=== PATIENT | female | born 1950 | race Caucasian/White ===

== ENCOUNTER 2019-03-12 05:27 | Day surgery (SDC) | payer OTHER, BC ==
[~2019-03-12] VITALS: Ht 167.6 cm; Wt 69.4 kg
--- NOTE | ~2019-03-12 | O ---
[facility] [place] [address] OPERATIVE REPORT Name: DOTTIE BINGHAM Room #: 150-4 [facility] M.R.#: [id number] Admission: 03/12/19 ������������������ Attend Phys: Renaldo Arguello Discharge: ������������������ Date of : 54 Report #: [id number] THIS REPORT FOR: //name// CC: Renaldo Fernandez DATE OF SERVICE: 03/12/2019 PREOPERATIVE DIAGNOSIS: Left humeral shaft fracture, nonunion. POSTOPERATIVE DIAGNOSIS: Left humeral shaft fracture, nonunion. PROCEDURE PERFORMED: Open reduction and internal fixation of left humeral shaft fracture with locking plate and bone grafting. SURGEON: Renaldo Desai M.D. SODA FLAKER: Raven Ridley PA-C. ANESTHESIA: General. FLUIDS: Approximately 1500 mL crystalloid. ESTIMATED BLOOD LOSS: Approximately 50 mL. IMPLANTS UTILIZED: Synthes proximal humeral locking plate. DESCRIPTION OF PROCEDURE: After proper identification of the patient and the operative site in preoperative holding area, the operative site was signed by myself. Risks, benefits, alternatives and potential complications of her injury and proposed treatment were discussed. The patient and her wished to proceed with the above. Anesthesia discussed the risks, benefits, alternatives and potential complications of a block and under ultrasound guidance, performed an interscalene block to help with postoperative pain management. After satisfactory block, she was brought back to the operative suite. After induction of satisfactory general anesthesia, she was carefully positioned in the beach chair with head of bed elevated approximately 40 degrees. Left arm was sterilely prepped and draped in the usual manner and placed within a apta.me limb positioning system. Final skin draping was with Ioban. Anterior deltopectoral approach extending into the anterior Demarco approach of the arm was planned. Gross fracture site mobility was noted consistent with her preoperative imaging studies and diagnosis of a nonunion. Fracture site was identified using C-arm. Incision was centered from this area. Full thickness skin flaps were developed. Deltopectoral interval was found opened. Brown deltoid retractor was used to carefully retract these tissues and then, the approach was extended distally and more classic anterior exposure with splitting [facility] [address] [place] [address] OPERATIVE REPORT Name: DOTTIE BINGHAM Room #: 150-4 [facility] M.R.#: [id number] Admission: 03/12/19 ������������������ Attend Phys: Renaldo Arguello Discharge: ������������������ Date of : 54 Report #: [id number] of the brachialis. Subperiosteal dissection was used to gain access to the shaft and the fracture site. Fracture site fibrous tissue was noted with no significant bony union from the butterfly fragment to the proximal or distal fragments. After this had been very meticulously cleared out and punctate type bone bleeding noted from the fracture surfaces, the fracture was able to be aligned near anatomically. Cancellous chips bone graft was carefully impacted into the fracture site and then bluntly, the periosteum was elevated in three separate areas around the butterfly fragments to compress the bone graft and the Arthrex Cerclage FiberTape system was placed. Great care was taken to ensure that this was placed directly around the bone with no interposed soft tissue. Proximally and distally, these two were tensioned and tied appropriately and then, the Synthes plate was provisioned and secured initially with two cortical screws. Its overall position was deemed to be in satisfactory position. Total of three additional locking screws were placed proximally and six cortices of fixation were achieved distally and then at the apex of the butterfly fragment, the third FiberTape Cerclage was passed adding additional fixation and stabilization in the mid aspect of the plate where the orientation of the plate did not really accommodate screw fixation in this region. Again, great care was taken with the FiberTape passage to not incorporate any soft tissue and protect the surrounding neurovascular structures. Implant images in the AP and lateral planes were obtained and revealed satisfactory alignment of the fracture as well as the hardware placement. There was good compression at the fracture sites with the cerclage with respect to the bone grafting. Wound was thoroughly irrigated multiple times throughout the procedure with antibiotic irrigant. One gram of vancomycin powder was utilized during closure in the deep and superficial tissues. Fascial layer was closed with 0 Vicryl, 2-0 Vicryl for the subcutaneous tissues, final skin closure with a running Monocryl stitch. The incision was sealed with Dermabond. Aquacel dressing was applied as well as a sling and abduction pillow. At time of dictation, she was still in the operative suite with anticipated discharge to recovery room in stable condition. ��������������������������������������������� ���������������������������������������� By: ��������������������������������������������� 1414 1442 Renaldo Desai MD /nt
[~2019-03-12 05:27] MED LIST: AMBIEN 5 MG TABL5 M1 PO; CALCIUM 500 +1 EAC5 PO; HUMIRA PEN40 MG/0.4 SUBQ; MAGOX 400400 MG PO; POTASSIUM GLUC500 MG PO
[2019-03-12 10:39] VITALS: BP 117/77
[2019-03-12 15:31] VITALS: BP 117/77
--- NOTE | 2019-03-13 10:31 | NUR ---
ORDERS RECEIVED FOR P.T. EVAL AND TREAT BUT Pt HAD BEEN D/C'D (03/12/19) PRIOR TO P.T. BEING ABLE TO INITIATE EVAL.
--- NOTE | 2019-03-14 18:12 | EKG ---
[address] [address] ELECTROCARDIOGRAM REPORT Name: DOTTIE BINGHAM Room #: 150-4 [facility] M.R.#: [id number] ������������������ Admission: 03/12/19 ������������������ Attend Phys: Renaldo Arguello Discharge: ������������������ Date of : 54 Report #: [id number] ����������������������������������������������������������������� [id number] THIS REPORT FOR: //name// [facility] Test Date: 2019-03-12 Test Time: 09:35:54 Pat Name: DOTTIE BINGHAM Department: Room: 150 4 Gender: F Vessel Crew Member: hugh : 1950 Requested By: Renaldo Desai Order Number: [id number] MD: Carlos Soriano Measurements Intervals [place] Rate: 102 P: 28 IN: 119 QRS: 18 QRSD: 89 T: 43 QT: 345 QTc: 450 Interpretive Statements Sinus tachycardia Otherwise normal tracing No previous ECG available for comparison Electronically Signed On 03-14-2019 18:11:54 CDT by Carlos Soriano [email or web address] ��������������������������������������������� <ELECTRONICALLY SIGNED> ���������������������������������������� By: Carlos Soriano MD, [facility] ��������������������������������������������� 03/14/19 1811 0935 4 Carlos Soriano MD, FACC /EPI
== END 2019-03-12 15:54 | disposition home or self-care (01) ==
LOC: OR 05:27 → TBA 05:28 → OR 09:30
DX: S42.302K Unspecified fracture of shaft of humerus, left arm, subsequent encounter for fracture with nonunion (principal); Z98.890 Other specified postprocedural states; Z88.8 Allergy status to other drugs, medicaments and biological substances; Z87.19 Personal history of other diseases of the digestive system; Z98.41 Cataract extraction status, right eye; Z79.899 Other long term (current) drug therapy; X58.XXXD Exposure to other specified factors, subsequent encounter
CPT/HCPCS: 50010; 50101; 50172; 50341; 50386; 50417; 50697; 50733; 50935; 51132; 51320; 52001; 52256; 52282; 53170; 54118; 55430; 56525; 56527; 56530; 56667; 62110; 62900; 64039; 70005